=== PATIENT | female | born 1940 | race Caucasian/White ===

== ENCOUNTER 2017-03-16 00:50 | Day surgery (SDC) | payer MEDICARE ==
[2017-03-16] VITALS (16 sets, daily range): BP systolic 122–161; BP diastolic 69–103; PULSE 60–65; RESP 12–18; O2SAT 94–98
[~2017-03-16] VITALS: Ht 165.1 cm; Wt 113.0 kg
[~2017-03-16 00:50] MED LIST: ASPI-973 PO; ATOR20TA PO; CHOL200025 PO; DICL50TA5 PO; FUR20 PO; GABA-502 PO; HYDR-4003 PO; LEVO100T6 PO; METO-274 PO; MULT1CAP33 PO; OMEP20CA11 PO; PARO10TA24 PO; POTA8TAB8 PO; PRAM0.252 PO
[2017-03-16 11:38] LABS: BASOPHILS % (AUTO) 0.4 % (0-3); EOSINOPHILS % (AUTO) 4.5 % (0-5); MONOCYTES % (AUTO) 9.7 % (4-12); Mean Corpuscular Hemoglobin 32.1 pg (27.0-35.0); NEUTROPHILS % (AUTO) 36.2 % (40-74); Platelet Count 215 bil/L (150-400)
[2017-03-16 12:00] LABS: INR 0.99 ratio
--- NOTE | 2017-03-16 12:20 | NUR ---
CHRISTINA Patient admitted to [facility] bed 6 at 1115. at bedside. Patient reports 7/10 arthritis pain in feet, using home OTC lotion that she reports as "very helpful". HL x 2 placed and labs drawn. Consent confirmed. History and medications reviewed. Pre-procedure teaching done and questions answered.
[2017-03-16] MEDS ORDERED: 0.9% Sodium Chloride 250 ML ONE (12:49)
[2017-03-16] MEDS ORDERED: Bupivacaine-MPF 0.5% 30 mL Inj ONE (12:49)
[2017-03-16] MEDS ORDERED: Vancomycin 1,000 mg Inj ONE (12:49)
[2017-03-16] MEDS ORDERED: fentaNYL-PF 50 mCg/mL 2 mL Inj ONE ×2 (12:56→13:32)
[2017-03-16] MEDS ORDERED: Vancomycin 1,000 mg/250 mL NS IV ONE ×2 (13:00)
[2017-03-16] MEDS ORDERED: Heparin 10,000 Unit/1,000 mL NS Premix IV ONE (14:31)
[2017-03-16] MEDS: 0.9% Sodium Chloride 1,000 ML IV SCH (14:43)
[2017-03-16] MEDS ORDERED: HYDROcodone-APAP 5-325 mg Tablet PO PRN ×2 (14:45→19:20)
[2017-03-16] MEDS ORDERED: Ondansetron 2 mg/mL 2 mL Inj IVPUSH PRN (14:45)
--- NOTE | 2017-03-16 15:56 | DRSVH ---
PROCEDURE: X-RAY CHEST ONE VIEW, PORTABLE ([id number]) INDICATIONS: For new leads placed TECHNIQUE: One view of the chest was acquired. COMPARISON: [facility], CR, XR SHOULDER MIN 2VW RT, 04/01/2016, 10:53. [facility], CR, XR SHOULDER MIN 2VW LT, 04/01/2016, 10:53. FINDINGS: Surgical changes and devices: Postoperative changes of the lower cervical spine are only partially vi sualized. A cardiac pacer/good r bronchus is seen overlying the left chest. Lungs and pleura: The lungs are well aerated. There is no focal consolidation, effusion, or pneumoth orax. Mediastinum: Mediastinal contours appear normal. Heart size is normal. There is aortic atheroscler osis. Bones and chest wall: No suspicious bony lesions. Mild deformity involving both humeral heads is pr esent. There may be ossifications overlying the humeral heads. There are degenerative changes of th e spine and shoulders. Overlying soft tissues appear unremarkable. IMPRESSION: No acute cardiopulmonary process is evident. No pneumothorax. Dictated by: Nick Hamilton M.D. on 03/16/2017 at 14:53 Approved by: Nick Hamilton M.D. on 03/16/2017 at 14:54
--- NOTE | 2017-03-16 18:30 | NUR ---
CHRISTINA Patient return from analyst microbiology lab pacemaker upgrade to ICD and new lead placement at 1500. ECG 12 and chest x ray complete. Ice to incision site x 2 hours and HOB up 45 degrees. No bleeding or hematoma at incision. Patient pain free on return from but returned to baseline arthritis pain prior to transfer to room 3030. Taking PO and void. Transferred by bed at 1830. Report to receiving RN.
--- NOTE | 2017-03-16 18:43 | NUR ---
ADMIT/Transfer to [facility] from [facility] Report received from SILVIA Storey -CHRISTINA. Pt brought up to floor at 1835. Pt denies pain and SOB. Incision CDI, no bleeding/bruising or excessive swelling. Tele attached - Paced 60. Interventions completed, board updated, oriented to unit, room and call light.
[2017-03-16] MEDS ORDERED: Pantoprazole 20 mg ER24 Tablet PO PRN (19:20)
[2017-03-17] MEDS: 0.9% Sodium Chloride 1,000 ML IV SCH (00:43)
[2017-03-17 00:46] VITALS: BP 132/85; PULSE 60; RESP 18; O2SAT 97
[2017-03-17] MEDS ORDERED: Vancomycin Inj 1,000 MG in IV Premix 1 EACH IV ONE (02:45)
--- NOTE | 2017-03-17 03:54 | OP ---
[address] [address] OPERATIVE REPORT PATIENT: TAMAR MARCOS : 1940 MR#: [id number] ADMIT: 03/16/2017 JOB ID: [id number] DATE OF SURGERY: 03/16/2017 PREOPERATIVE DIAGNOSIS(ES): 1. Device detected ventricular tachycardia, sustained. 2. Complete heart block with dual-chamber pacemaker in place. POSTOPERATIVE DIAGNOSIS(ES): 1. Device detected ventricular tachycardia, sustained. 2. Complete heart block with dual-chamber pacemaker in place. PROCEDURES PERFORMED: 1. Implantation of a new implantable cardioverter-defibrillator system with implantable cardioverter-defibrillator generator and single coil VF4 lead. 2. Pocket revision. 3. Pacemaker generator explantation. 4. Fluoroscopy. SURGEON: Simon Sharp MD, electrophysiology attending. COURT SECURITY OFFICER: Bruno Perkins. IMPLANTED DEVICES: 1. [employer] pulse generator, model KJ5390-76N, serial #[id number]. 2. RV ICD lead, [employer], 7122Q, 58 cm, serial #[id number]. 3. Explanted device, [employer] [place] pulse generator, model K173, serial #[id number]. CHRONIC DEVICES: 1. Right atrial lead, [employer] 4469, serial #[id number]. 2. RV pacemaking lead, [employer] 4456, serial #[id number] (capped but useable). ANESTHESIA: Bolus dosing of Versed and fentanyl administered to appropriate level of sedation. INDICATION: The patient is a pleasant 76-year-old woman with complete heart block who had device detected sustained but self-terminating ventricular tachycardia. After discussion of risks and benefits of upgrade to an ICD system, she opted to proceed. PROCEDURAL DESCRIPTION: Following informed signed consent, the patient was taken to the EP laboratory in a fasting nonsedated state, where she was prepped in the usual fashion. A left upper extremity venogram confirmed patency of the left subclavian venous system. The left infraclavicular surgical scar was infiltrated with 60 cc of a 50/50 mixture of bupivacaine and lidocaine. Once adequate anesthesia had been achieved, a 4 cm incision was performed overlying the previous surgical site. Dissection was carried down to the capsule and the leads and generator were freed loose of adhesions. The medial and inferior aspect of the capsule were infiltrated with more lidocaine and bupivacaine, and the pocket extended medially and inferiorly to accommodate the larger footprint of the new device. Then, under venographic guidance, the left axillary vein was cannulated over the first rib with a micropuncture needle to deploy 0.035, 3 mm J guidewire. Over this, a 7-Kenyan tear-away sheath was advanced, guidewire was removed. An active fixation ICD lead was advanced to the RV outflow tract and ultimately the RV apex. The lead was affixed in position. Using its associated active fixation screw it was connected to the external analyzer and demonstrated appropriately sensed R waves, impedance. Capture threshold was checked, 10 V, and there was no evidence of diaphragmatic stimulation. Once the position and redundancy of leads confirmed, the lead was anchored to the prepectoralis fascia. Using associated anchoring sleeves, the pocket was then copiously irrigated with antibiotic solution. A new generator was brought to the field and the new lead was connected to the new generator in an asynchronous pacing fashion. The old pacemaker lead was disconnected from the generator as was the atrial lead. The chronic atrial lead was secured to the new ICD generator and tested through the generator, showing excellent lead parameters. The chronic RV pacing lead was capped and secured to the floor of the capsule using 1-0 Ti-Cron suture. The entire system was then placed into the capsule and the generator was secured to the floor, the capsule using 1-0 Ti-Cron suture. The incision was closed with running layers of absorbable suture. The wound was dressed with skin adhesive and a small dressing. At the end the procedure, the needle, sponge, and instrument counts were correct. COMPLICATIONS: None. ESTIMATED BLOOD LOSS: 10 cc. DEVICE MEASURED DATA: 1. Right atrial lead 1.2 mV, 440 ohms, 0.5 V at 0.5 msec. 2. RV lead: No R-waves at 30 beats per minute, 760 ohms, 0.5 V at 0.5 msec. FINAL PROGRAM PARAMETERS: 1. DDDR 60-130 beats per minute. 2. VF zone at 187 beats per minute charge, followed by maximum output shocks. 3. VT2 zone at 171 beats per minute with ATP x3, followed by shocks. 4. VT monitor zone at 150 beats per minute. IMPRESSION: Successful upgrade to a dual-chamber implantable cardioverter-defibrillator system. PLAN: 1. Stat portable chest x-ray. 2. PA and lateral chest x-ray in the morning. 3. IV vancomycin through tomorrow. 4. Doxycycline x7 days in one week. ATTENDING STATEMENT: Simon Sharp MD, electrophysiology, was present for and supervised/performed all aspects of this procedure.
[2017-03-17 05:46] VITALS: BP 145/98; PULSE 60; RESP 18; O2SAT 96
[2017-03-17] MEDS ORDERED: PARoxetine 20 mg Tablet PO SCH (08:30)
[2017-03-17] MEDS ORDERED: MeTOProlol XL 50 mg ER24 Tablet PO SCH (08:30)
--- NOTE | 2017-03-17 09:04 | PCM.DIMED ---
Discharge Instructions Date of Service Mar 17, 2017 Dates of Hospitalization Discharge Diagnosis Discharge Diagnosis Coronary Artery Disease Complete Heart Block Sustained Ventricular Tachycardia Hypertension Diet Discharge Diet: Heart Healthy Activity Discharge Activity: Other (Do not extend left elbow high above shoulder for one month. Do not lift, push or pull more than 10 lbs with the left arm for one month.) Patient Instructions Follow-up in: 1 week Mid-level Provider (F9): Norberto Nobles PA-C Follow-up with Mid-level in: 6 weeks Norberto Nobles PA-C Mar 17, 2017 09:04
[2017-03-17] MEDS ORDERED: CEPH500C PO (09:13)
--- NOTE | 2017-03-17 09:50 | DIS ---
[address] [address] DISCHARGE SUMMARY PATIENT: TAMAR MARCOS : 1940 MR#: [id number] ADMIT: 03/16/2017 JOB ID: [id number] DIS: 03/17/2017 REASON FOR ADMISSION: Upgrade of pacemaker to a defibrillator. CHIEF COMPLAINT: Ventricular tachycardia. BRIEF HISTORY: The patient is a pleasant 76-year-old woman with known ischemic heart disease and previous PCI who also has complete electrical block and a dual-chamber pacemaker in place for the last few years. Her pacemaker documented an episode of sustained ventricular tachycardia which ultimately self-terminated. The episode lasted about 45 seconds with a heart rate of 162 BPM. Her recent ischemic evaluation by way of a perfusion study was largely unremarkable. She was advised of the fact that her pacemaker can do nothing about ventricular tachycardia, but defibrillator could pace or shock if necessary. She wished to go ahead with a defibrillator implant. COURSE IN HOSPITAL: The patient was admitted to the [facility] and taken to the labor relations officer, where she received the new right ventricular defibrillation lead and ICD. This was done without incident and she was then transferred back to the [facility] for recovery from sedation. Later she was transferred up to the [facility] for overnight observation and she did well. In the morning she was ambulatory without difficulty and felt well for discharge home. She had no complaints of chest pain or lightheadedness or shortness of breath. Her ICD site was closed and dry and there was no hematoma and it was only modestly tender. Chest x-ray showed good lead positions and no pneumothorax. Device testing showed excellent capture and sensing thresholds for both leads. She felt well for discharge home. DISPOSITION: The patient was discharged home in good condition with a follow up appointment at the [facility] Cardiology office in one week. She was asked not to extend her left elbow above her shoulder for one month and not to lift, push or pull more than 10 pounds with the left arm for one month. Also to keep the incision dry one day and then she may shower in the days to follow. She will follow her heart healthy diet and take medications as prescribed. DISCHARGE MEDICATIONS: 1. Cephalexin 500 mg b.i.d. 2. Aspirin 81 mg daily. 3. Atorvastatin 20 mg daily. 4. Vitamin D3 2000 units daily. 5. Diclofenac potassium 50 mg b.i.d. 6. Furosemide 20 mg daily. 7. Gabapentin 1200 mg daily 8. Hydrocodone/acetaminophen 5-325 mg tablets 1 q.4 hours p.r.n. pain. 9. Levothyroxine 100 mcg daily. 10. Metoprolol succinate 100 mg daily. 11. Multivitamin one daily. 12. Omeprazole 20 mg b.i.d. 13. Duloxetine 30 mg q.h.s. 14. Potassium chloride ER 8 mEq daily. 15. Mirapex 0.5 mg q.h.s. FINAL DIAGNOSES: That would be: 1. Ischemic coronary artery disease. 2. Complete heart block. 3. Sustained ventricular tachycardia. 4. Hypertension.
[2017-03-17 10:18] VITALS: BP 124/78; PULSE 60; RESP 12; O2SAT 97
--- NOTE | 2017-03-17 10:58 | NUR ---
DISCHARGE Pt dc'd home at 1030 this morning, off unit in w/c accompanied by . Pt A&Ox4, denies any pain and in no apparent distress. IV dc'd intact, all belongings returned. All instructions for diet, activity, medications, prescriptions and follow up reviewed with pt who reports understanding. PA in and discussed restrictions for LUE movement as well as wound care for DIVYA chest incision.
--- NOTE | 2017-03-17 11:09 | DRSVH ---
PROCEDURE: X-RAY CHEST, TWO VIEWS ([id number]) INDICATIONS: For new lead placement TECHNIQUE: 2 views of the chest were acquired. COMPARISON: None. FINDINGS: Surgical changes and devices: Left-sided cardiac pacer. Old cardiac pacer leads. Cervical spine posto perative change.. Lungs and pleura: No pleural effusions or pneumothorax. Lungs are clear. Mediastinum: Mediastinal contours are normal. Heart size is normal. Bones and chest wall: No suspicious bony abnormalities. Soft tissues appear unremarkable. Severe b ilateral shoulder degenerative change. IMPRESSION: 1. Left-sided cardiac pacer. 2. No radiographic evidence of acute cardiopulmonary pathology. Dictated by: René Arechiga M.D. on 03/17/2017 at 9:59 Approved by: René Arechiga M.D. on 03/17/2017 at 10:00
== END 2017-03-17 10:41 | disposition home or self-care (01) ==
LOC: SOUO 00:50 → MPC 18:21 → SOUO 03-17 10:41
PROVIDERS: ATTEND Internal Medicine Cardiovascular Disease
DX: I47.2 Ventricular tachycardia (principal); Z00.6 Encounter for examination for normal comparison and control in clinical research program; I44.2 Atrioventricular block, complete; I25.10 Atherosclerotic heart disease of native coronary artery without angina pectoris; Z95.0 Presence of cardiac pacemaker; I10 Essential (primary) hypertension; E03.9 Hypothyroidism, unspecified; Z79.82 Long term (current) use of aspirin
CPT/HCPCS: 33249; 36415; 71010; 71020; 80048; 85025; 85610; 93005; 99152; 99153; C1721; C1769; C1777; C1892; J0131; J1644; J2250; J3010; J3370; J7050; Q9967

== ENCOUNTER 2017-05-10 15:52 | Emergency (ER) | payer MEDICARE ==
[~2017-05-10] VITALS: Ht 165.1 cm; Wt 113.6 kg
[~2017-05-10 15:52] MED LIST changes: +CEPH500C PO; -METO-274 PO; +METO-394 PO
[2017-05-10 16:12] VITALS: BP 151/89; PULSE 61; RESP 15; O2SAT 99
--- NOTE | 2017-05-10 16:26 | ED.REPORT ---
HPI-General Illness Date of Service May 10, 2017 ED Provider: Blake Patel DO A 77 year old female with a history of atrial fibrillation, hypertension, hyperlipidemia, anxiety and migraines prior to menopause is referred by her PCP due to confusion. The pt had a headache yesterday, which has since mostly resolved, but felt lightheaded and "strange" this morning. She soon realized that she could not figure out how to open her e-mail account. When she met with a friend, her friend noticed that the pt was "unable to get words out normally" and was not answering questions appropriately. The pt was brought to see her PCP and was unable to answer questions at that time, including the date and which medications she is taking. She denies focal weakness. The pt also denies recent medication changes or blood thinner use, but states that her thyroid medication was doubled approximately seven months ago. Nursing Notes Stated Complaint: CONFUSION, SENT BY Chief Complaint: Neuro Symptoms/ Deficits Nursing Notes Reviewed: Yes Allergies: Coded Allergies: Sulfa (Sulfonamide Antibiotics) (Verified Allergy, Severe, HIVES, 05/10/17) Scheduled Aspirin (Aspirin) 81 Mg Tablet 81 MG PO DAILY Atorvastatin (Lipitor) 20 Mg Tablet 20 MG PO DAILY Cephalexin (Cephalexin) 500 Mg Capsule 500 MG PO BID Diclofenac Potassium (Diclofenac Potassium) 50 Mg Tablet 50 MG PO BID Furosemide (Furosemide) 20 Mg Tab 20 MG PO DAILY Gabapentin (Gabapentin) 300 Mg Capsule 1,200 MG PO DAILY Levothyroxine (Levothyroxine) 100 Mcg Tablet 100 MCG PO DAILY Metoprolol Succinate ER (Metoprolol Succinate ER) 100 Mg Tab.er.24h 100 MG PO DAILY Omeprazole (Omeprazole) 20 Mg Capsule. 20 MG PO BID Paroxetine (Paxil) 10 Mg Tab 30 MG PO HS Potassium Chloride ER (Potassium Chloride ER) 8 Meq Tablet 8 MEQ PO DAILY TAKE WITH FOOD Pramipexole Dihydrochloride (Mirapex) 0.25 Mg Tablet 0.5 MG PO HS Scheduled PRN Hydrocodone-Acetaminophen 5-325 mg (Hydrocodone-Acetaminophen 5-325 mg) 1 Each Tablet 1 TABLET PO Q4H PRN PRN For Pain Miscellaneous Medications Cholecalciferol (Vitamin D3) (Vitamin D3) 2,000 Unit Tablet 2,000 UNIT PO Multivitamin (Multivitamins) 1 Each Capsule 1 EACH PO General Time Seen by MD: 16:25 Chief Complaint Other (Confusion) Hx Obtained From: Patient Arrived By: Walk-in Sudden in Onset?: No Onset Occurred: 5 - 8 hours ago Symptom Duration: Since onset Recent Healthcare: Recent doctor visit Similar Sx Previous: No Past Medical History Past Medical History atrial fibrillation hypertension arthritis depression hyperlipidemia restless leg anxiety migraines prior to menopause Past Surgical History bilateral knee right hip spine Reports: Cholecystectomy Reports: Pacemaker insertion Smoking History Unknown if Ever Smoker Social History Alcohol Use: "Social" Other Social History: Good social support Ambulatory Status Independent Review of Systems Full Review of Systems Respiratory: Denies: Non-productive cough, Shortness of breath Cardiovascular: Denies: Chest pain GI: Denies: Abdominal pain, Vomiting Musculoskeletal: Denies: Back pain, Neck pain Skin: Denies Rash Neurologic: Reports: Confusion, Headache (mostly resolved), Lightheaded, Denies: Focal weakness Complete sys rev & neg: except as marked. Physical Exam Vital Signs Vital Signs Date Time Temp Pulse Resp B/P Pulse Ox O2 Delivery O2 Flow Rate FiO2 05/10/17 19:31 60 18 153/75 100 Room Air 05/10/17 16:12 36.9 61 15 151/89 99 Room Air Initial VS: Reviewed General/Constitutional: Awake, Alert Head / Eyes: Atraumatic, Normocephalic, PERRL, EOMI ENT: Atraumatic, Airway patent, Mucous membranes moist Neck: Atraumatic, Supple, Full range of motion Respiratory / Chest: Atraumatic, Breath sounds NL, Breath sounds = bilat, No respiratory distress Cardiovascular: Heart rate NL, Regular rhythm, Heart sounds NL Abdomen: Atraumatic, Soft, Non-tender Back: Atraumatic, Full range of motion Upper Extremities Upper Extremity / MS: Atraumatic, Full range of motion Lower Extremity / Pelvis / MS: Atraumatic, Full range of motion Skin: Atraumatic, Color NL, No rash, Warm, Dry Neurologic: Oriented X3, Speech NL, No motor deficits, No sensory deficits strength and sensation intact in all extremities Interpretation & Diagnostics Lab Results Interpretation Result Diagram: 05/10/17 1733 05/10/17 1733 Test 05/10/17 16:50 05/10/17 17:33 Urine Color Yellow (YELLOW) Urine Appearance Clear (CLEAR,HAZY) Urine pH 5.5 (5.0-8.0) Urine Specific [place] 1.005 (1.003-1.035) Urine Protein Negativemg/dL (NEG,TRACE) Urine Glucose (UA) Negativemg/dL (NEGATIVE) Urine Ketones Negativemg/dL (NEGATIVE) Urine Occult Blood Negative (NEGATIVE) Urine Nitrite Negative (NEGATIVE) Urine Bilirubin Negative (NEGATIVE) Urine Urobilinogen Normalmg/dL (NORMAL) Urine Leukocyte Esterase Negative (NEGATIVE) Urine RBC 0-2/hpf (0-2) Urine WBC 0-5/hpf (0-5) Urine Epithelial Cells Few/hpf (NONE-MOD) Urine Crystals None seen (NONE SEEN) Urine Bacteria Few/hpf (NONE-FEW) Urine Hyaline Casts None/lpf (NONE) Urine Granular Casts None seen (NONE SEEN) Urine Waxy Casts None seen (NONE SEEN) Urine Red Blood Cell Casts None seen (NONE SEEN) Urine White Blood Cell Casts None seen (NONE SEEN) Urine Mucus None seen (None Seen) Urine Trichomonas None seen (NONE SEEN) Urine Yeast None (NONE SEEN) Urinalysis Comment None Urine Culture Reflexed Not indicated White Blood Count 5.6th/mm3 (3.8-10.1) Red Blood Count 4.13mil/mm3 (3.90-5.20) Hemoglobin 13.4g/dL (12.0-15.6) Hematocrit 39.8% (35.0-46.0) Mean Corpuscular Volume 96.4fL (81-100) Mean Corpuscular Hemoglobin 32.4pg (27.0-35.0) Mean Corpuscular Hemoglobin Concent 33.7% (32.0-37.0) Red Cell Distribution Width 12.5% (12.3-15.4) Platelet Count 222bil/L (150-400) Neutrophils (%) (Auto) 39.6% (40-74) Lymphocytes (%) (Auto) 45.9% (14-46) Monocytes (%) (Auto) 10.0% (4-12) Eosinophils (%) (Auto) 3.8% (0-5) Basophils (%) (Auto) 0.5% (0-3) Sodium Level 138mEq/L (134-144) Potassium Level 4.7mEq/L (3.5-5.2) Chloride Level 100mEq/L (97-108) Carbon Dioxide Level 24mmol/L (18-29) Blood Urea Nitrogen 23mg/dL (8-27) Creatinine 0.72mg/dL (0.57-1.00) Estimat Glomerular Filtration Rate 113mL/min (>59) Glucose Level 98mg/dL (60-99) Calcium Level 9.2mg/dL (8.5-10.1) Total Bilirubin 0.3mg/dL (0.0-1.2) Aspartate Amino Transf (AST/SGOT) 27U/L (0-50) Alanine Aminotransferase (ALT/SGPT) 17U/L (0-32) Alkaline Phosphatase 99U/L (25-165) Total Protein 7.0g/dL (6.4-8.4) Albumin 4.2g/dL (3.4-5.0) Thyroid Stimulating Hormone (TSH) 10.620uIU/mL (0.450-4.500) Hold Burrell Top Tube Received (Received) ECG Interpretation ECG Interpretation: atrial paced complexes with a rate of 64 PVCs nonspecific IVCD with LAD LVH when compared to previous dated 03/17/2017, LVH is more prominent Time: 16:40 Interpreted by: ED physician X-Ray Chest Interpretation Chest Xray Interpretation: IMPRESSION: No acute disease Dictated by: Rangel Contreras M.D. on 05/10/2017 at 15:38 Approved by: Rangel Contreras M.D. on 05/10/2017 at 15:39 Interpretation / Wet Read by: Interpret - Radiologist CT Head Interpretation IMPRESSION: 1. No acute intracranial abnormality. Mild age related changes. Dictated by: Jerad Wadsworth M.D. on 05/10/2017 at 16:44 Approved by: Jerad Wadsworth M.D. on 05/10/2017 at 16:45 Interpretation / Wet Read by: Interpret - Radiologist Re-Eval/Medical Decision Med Decision/Clinical Course Patient presents with a slow onset mental slowing and memory impairment which was more pronounced today with no other neurologic abnormalities. Her CT was unremarkable. I considered an MRI to definitively rule out stroke, but as patient has a pacemaker I was unable to do this. She is already on an aspirin a day. In light of a significantly elevated TSH, her mental slowing, and memory impairment could be related to this and needs to be corrected. I will defer to her PCP for further management of her thyroid. Source of Hx: Old records Time of Eval: 19:10 Patient Status: Condition improved Re-Evaluation/Progress Note: Pt rechecked, who is resting comfortably. The diagnosis and plan for discharge are discussed. The pt understands and agrees with the plan. All questions are addressed at this time. Counseled Regarding: Diagnosis, Lab results, Need for follow-up, When/why to return to ED Discharge & Departure Primary Impression: Hypothyroidism Hypothyroidism type: unspecified Qualified Code: E03.9 - Hypothyroidism, unspecified Additional Impressions: Mild mental slowing Memory impairment Disposition: Home Discharge Condition All VS Reviewed: Yes Condition: Stable Patient Instructions: Hypothyroidism (ED) Additional Instructions: Thank you for entrusting us with your care. Your evaluation was reassuring. Your laboratory studies indicate that your symptoms may be related to your hypothyroidism. Based on your current weight a calculated dose would be near 175 g daily, but I will defer to your primary care provider to adjust your medications. Please call tomorrow to get further instructions on your dose change and to arrange a follow up appointment in the next several days. Return to the emergency department if you develop any new or worsening symptoms. Referrals: Leroy Herron MD (PCP) Scribe Attestation Portions of this note were transcribed by Richy Bunn. I, Dr. Patel personally performed the history, physical exam and medical decision-making; I reviewed and confirmed the accuracy of the information in the transcribed note. copies to: Leroy Herron MD, Gary R DO May 10, 2017 16:26 RICHY BUNN May 10, 2017 16:53
--- NOTE | 2017-05-10 16:40 | DRSVH ---
PROCEDURE: X-RAY CHEST ONE VIEW, PORTABLE ([id number]) INDICATIONS: memory loss TECHNIQUE: One view of the chest was acquired. COMPARISON: [facility], CR, XR CHEST 2VW, 03/17/2017, 6:34. FINDINGS: Surgical changes and devices: Cardiac AICD and cervical spine fixation hardware Lungs and pleura: No pleural effusions or pneumothorax. Lungs are clear. Mediastinum: Mediastinal contours appear normal. Heart size is normal. Bones and chest wall: No suspicious bony lesions. Overlying soft tissues appear unremarkable. Amirah re bilateral shoulder joint degeneration IMPRESSION: No acute disease Dictated by: Rangel Contreras M.D. on 05/10/2017 at 15:38 Approved by: Rangel Contreras M.D. on 05/10/2017 at 15:39
--- NOTE | 2017-05-10 16:47 | DRSVH ---
PROCEDURE: CT BRAIN WITHOUT CONTRAST ([id number]) INDICATIONS: headache, ams TECHNIQUE: Noncontrast 4.5 mm thick angled axial sections acquired from the foramen magnum to the vertex, with c oronal reformats. COMPARISON: CT brain 08/20/2010 FINDINGS: Image quality: Excellent. CSF spaces: Basal cisterns are patent. No extra-axial fluid collections. The ventricles are symmet abraham in size and shape. Brain: No intracranial bleeds or masses. There is cerebral volume loss for age, with resultant vent ricular and sulcal prominence. There are periventricular and deep white matter chronic small vessel ischemic changes. There is intracranial internal carotid artery atherosclerosis. Skull and face: Calvarium and visualized facial bones appear intact, without suspicious lesions. Hyp erostosis frontalis interna. Sinuses: Visualized sinuses and mastoids are clear. IMPRESSION: 1. No acute intracranial abnormality. Mild age related changes. Dictated by: Jerad Wadsworth M.D. on 05/10/2017 at 16:44 Approved by: Jerad Wadsworth M.D. on 05/10/2017 at 16:45
[2017-05-10 17:08] LABS: APPEARANCE,URINE CLEAR (CLEAR,HAZY); COLOR,URINE YELLOW (YELLOW); OCCULT BLOOD,URINE NEGATIVE (NEGATIVE); PH,URINE 5.5 (5.0-8.0); UROBILINOGEN,URINE NORMAL (NORMAL)
[2017-05-10 17:43] LABS: BASOPHILS % (AUTO) 0.5 % (0-3); EOSINOPHILS % (AUTO) 3.8 % (0-5); Mean Corpuscular Hemoglobin 32.4 pg (27.0-35.0); Mean Corpuscular Volume 96.4 fL (81-100); NEUTROPHILS % (AUTO) 39.6 % (40-74); Platelet Count 222 bil/L (150-400)
[2017-05-10 19:31] VITALS: BP 153/75; PULSE 60; RESP 18; O2SAT 100
== END 2017-05-10 19:32 | disposition home or self-care (01) ==
LOC: SED 15:52
DX: E03.9 Hypothyroidism, unspecified (principal); G31.84 Mild cognitive impairment of uncertain or unknown etiology; I10 Essential (primary) hypertension; E78.5 Hyperlipidemia, unspecified; Z79.82 Long term (current) use of aspirin; Z88.2 Allergy status to sulfonamides
CPT/HCPCS: 36415; 70450; 71010; 80053; 81000; 81002; 84443; 85025; 93005; 99285; G0463